=== PATIENT | male | born 1940 | race Caucasian/White ===

== ENCOUNTER → 2019-12-25 | Day surgery (SDC) | payer MEDICARE ==
[2019-12-20 12:57] LABS: BASOPHILS % 0.2 % (0.0-1.0); EOSINOPHILS # (AUTO) 0.3 (0.0-0.4); EOSINOPHILS % 5.4 % (0.0-6.0); HEMATOCRIT 33.4 % (38.2-49.6); HEMOGLOBIN 10.7 g/dL (14.0-18.0); LYMPHOCYTES # (AUTO) 1.6 (1.0-3.2); LYMPHOCYTES % 28.8 % (18.0-39.1); MEAN CORPUSCULAR HEMOGLOBIN 32.5 pg (28-32); MEAN CORPUSCULAR VOLUME 101.5 fL (81-99); MONOCYTES # (AUTO) 0.4 (0.2-0.8); NEUTROPHILS # (AUTO) 3.1 (2.1-6.9); NEUTROPHILS % 56.7 % (38.7-80.0); PLATELET COUNT 225 x10e3/uL (140-360); RED BLOOD COUNT 3.29 x10e6/uL (4.3-5.7); RED CELL DISTRIBUTION WIDTH 15.9 % (11.7-14.4)
[2019-12-20 13:21] LABS: ANION GAP 14.6 mmol/L (8-16); BLOOD UREA NITROGEN 12 mg/dL (7-26); BUN/CREATININE RATIO 14 (6-25); CALCIUM 9.4 mg/dL (8.4-10.2); CARBON DIOXIDE 25 mmol/L (22-29); CHLORIDE 107 mmol/L (98-107); CREATININE, SERUM 0.83 mg/dL (0.72-1.25); EST GLOMERULAR FILTRATION RATE > 60 ML/MIN (60-); GLUCOSE 152 mg/dL (74-118); POTASSIUM 4.6 mmol/L (3.5-5.1); SODIUM 142 mmol/L (136-145)
--- NOTE | 2019-12-20 13:34 | Diagnostic Imaging Report ---
EXAMINATION: CHEST 2 VIEWS INDICATION: Preop for surgery ^20191220 ^1311 ^PRE-OP COMPARISON: None FINDINGS: TUBES and LINES: None. LUNGS: Lungs are well inflated. Lungs are clear. There is no evidence of pneumonia or pulmonary edema. PLEURA: No pleural effusion or pneumothorax. HEART AND MEDIASTINUM: Likely small calcified mediastinal and hilar lymph nodes. The cardiomediastinal silhouette is otherwise unremarkable. BONES AND SOFT TISSUES: No acute osseous lesion. Soft tissues are unremarkable. UPPER ABDOMEN: No free air under the diaphragm. IMPRESSION: No acute thoracic abnormality. Signed by: Dr. Gerald Jones M.D. on 12/20/2019 1:31 PM
[~2019-12-25] MED LIST: ASPRIN PO; ATORVASTATIN CA80 MG PO; CEFAZOLIN SOD 1 GM/NS 50ML 100 ML IV ONE; DEXAMETHASONE SOD PHOS INJ 4 MG/ML VIAL ONE; EPHEDRINE SULFATE INJ 50 MG/ML VIAL ONE; FENTANYL CITRATE/PF 100MCG/2 ML INJ ONE; HYDROCODONE; LEVOTHYROXINE25 MCG PO; LIDOCAINE HCL 2% LOCAL INJ 5 ML SDV VIAL INJ ONE; LISINOPRIL10 MG PO; METFORMIN HCL1000 MG PO; MIDAZOLAM HCL 2 MG/2 ML VIAL ONE; MORPHINE SULFATE INJ 10 MG/ML ONE; NIACIN500 M2 PO; ONDANSETRON HCL INJ 2MG/ML 2ML 2 MG/ML VIAL ONE; PROPOFOL IV EMULSION 10 MG/ML 20 ML VIAL ONE; PROPRANOLOL HCL40 MG PO; PROZAC20 MG PO; SEVOFLURANE INHAL SOLN 250 ML PEN BTL ONE
[2019-12-25 17:35] VITALS: BP 160/82
--- NOTE | 2019-12-30 22:40 | Operative Report ---
DATE OF PROCEDURE: 12/25/2019 SURGEON: Jalen Islas MD PREOPERATIVE DIAGNOSIS: Displaced left patella fracture. POSTOPERATIVE DIAGNOSIS: Displaced left patella fracture. PROCEDURES PERFORMED: 1. Open reduction and internal fixation with a tension band technique of the displaced left patella fracture. 2. Allograft bone grafting of the left patella fracture. PRESTO LOG OPERATOR: There was no social and human services assistant. ANESTHESIA: General endotracheal intubation anesthesia. IV FLUIDS: Per the Anesthesia record. COMPLICATIONS: None. INDICATIONS FOR THE PROCEDURE: Mr. Martinez is a 79-year-old gentleman, who experienced a fall, fracturing his left patella. He was evaluated in the office and found to have a displaced patella fracture. At the time of his office visit, treatment options were discussed in detail, the patient chose to undergo surgical stabilization of his injury. At the time of his office visit, the preoperative and postoperative expectations were discussed in detail, which included the use of a knee immobilizer centered over the knee joint 24 hours a day. At the time of the patient's presentation to the hospital, the patient's knee immobilizer was found to be down around the patient's ankle. When asked about the position of his brace, the patient seemed to indicate he did not understand that it required, that it be centered over the knee joint. The postoperative expectations were again reviewed with the patient preoperatively. Specific instructions were provided in the postoperative orders concerning the use of the brace postoperatively and the nurses were also given specific instructions to pass along with the patient and family once the patient awakened in the postanesthesia care unit, concerning the positioning of the brace and the need for to be centered over the knee joint at all times. BRIEF DESCRIPTION OF THE PATIENT'S OPERATIVE PROCEDURE: Mr. Martinez was taken to the operating room and placed in supine position on the operating table. Following induction of general anesthesia as well as endotracheal intubation, the patient's left lower extremity was examined under anesthesia. He was found to have bruising and swelling over the anterior aspect of the knee joint. Fluoroscopic evaluation of the knee joint demonstrated a significantly displaced patella fracture. The patient's lower extremity was prepped and draped in standard surgical fashion. The case was begun by creating incision over the anterior aspect of the knee joint. This incision was carried through the skin only. Blunt dissection was used to deepen the incision and full-thickness skin flaps were elevated medially and laterally exposing the extensor mechanism and the patient's patella fracture. The patient's fracture was found to be significantly displaced, and there was significant disruption of the medial and lateral retinaculum. The patient's wound was copiously irrigated and all hematoma products were excised. The fracture site was also thoroughly assessed at this time. A tenaculum clamp was used to reduce the patient's fracture and the position of the fracture was assessed using fluoroscopy and found to be appropriate. Two 0.062 K-wires were then inserted from distal to proximal transfixing the fracture in its reduced position. The position of K-wires were again assessed fluoroscopically and found to be appropriate. An 18-gauge wire was then placed about the wires and patella in a [id number] fashion. The wires were then tensioned appropriately. The K-wires were cut and the construct was then assessed fluoroscopically and found to be appropriate. The knee was placed through range of motion and the construct was found to be intact with compression of the level of the fracture site. The wound was again copiously irrigated. He was found to have mild comminution of the fracture site. Graft on putty was used and injected in the area of comminution to stimulate bone growth. The extensor retinaculum was repaired using nonabsorbable suture. The remaining soft tissues were repaired in a multilayer fashion. Sterile dressings were applied and a knee immobilizer was placed in a position centered over the patella. The patient was then awakened and taken to the Postanesthesia Care Unit in stable condition. MD MAC Aggarwal/KRYSTINA /[id number]
== END | disposition home or self-care (01) ==
LOC: OR 14:14
PROVIDERS: ATTEND Specialist
DX: S82.042A Displaced comminuted fracture of left patella, initial encounter for closed fracture (principal); E11.9 Type 2 diabetes mellitus without complications; I10 Essential (primary) hypertension; R00.1 Bradycardia, unspecified; W18.39XA Other fall on same level, initial encounter; Z01.810 Encounter for preprocedural cardiovascular examination; Z01.812 Encounter for preprocedural laboratory examination; Z01.818 Encounter for other preprocedural examination; Z11.59 Encounter for screening for other viral diseases; Z79.82 Long term (current) use of aspirin; Z79.84 Long term (current) use of oral hypoglycemic drugs
CPT/HCPCS: 27524; 36415 ×2; 71046; 76000; 80048; 82948; 85025; 93005; C1713 ×2; J0690; J1100; J2001; J2250; J2270; J2405; J2704; J3010; U0002

== ENCOUNTER → 2020-01-14 | Day surgery (SDC) | payer MEDICARE, OTHER ==
[2020-01-10 10:57] LABS: BASOPHILS % 0.5 % (0.0-1.0); EOSINOPHILS # (AUTO) 0.3 (0.0-0.4); EOSINOPHILS % 4.1 % (0.0-6.0); HEMATOCRIT 39.5 % (38.2-49.6); LYMPHOCYTES # (AUTO) 2.8 (1.0-3.2); LYMPHOCYTES % 42.2 % (18.0-39.1); MEAN CORPUSCULAR HGB CONC 32.9 g/dL (31-35); MEAN CORPUSCULAR VOLUME 100.3 fL (81-99); MONOCYTES # (AUTO) 0.6 (0.2-0.8); MONOCYTES % 9.3 % (4.4-11.3); NEUTROPHILS # (AUTO) 2.9 (2.1-6.9); PLATELET COUNT 283 x10e3/uL (140-360); RED BLOOD COUNT 3.94 x10e6/uL (4.3-5.7); RED CELL DISTRIBUTION WIDTH 13.8 % (11.7-14.4)
[2020-01-10 11:26] LABS: BLOOD UREA NITROGEN 11 mg/dL (7-26); BUN/CREATININE RATIO 13 (6-25); CALCIUM 9.4 mg/dL (8.4-10.2); CARBON DIOXIDE 27 mmol/L (22-29); CHLORIDE 107 mmol/L (98-107); CREATININE, SERUM 0.88 mg/dL (0.72-1.25); EST GLOMERULAR FILTRATION RATE > 60 ML/MIN (60-); GLUCOSE 147 mg/dL (74-118); SODIUM 143 mmol/L (136-145)
[~2020-01-14] MED LIST changes: +DESFLURANE 240 ML BTL INH ONE; -MIDAZOLAM HCL 2 MG/2 ML VIAL ONE; -MORPHINE SULFATE INJ 10 MG/ML ONE; -SEVOFLURANE INHAL SOLN 250 ML PEN BTL ONE
[2020-01-14 11:02] LABS: ANION GAP 14.4 mmol/L (8-16); BLOOD UREA NITROGEN 17 mg/dL (7-26); BUN/CREATININE RATIO 20 (6-25); CALCIUM 9.4 mg/dL (8.4-10.2); CARBON DIOXIDE 23 mmol/L (22-29); CHLORIDE 107 mmol/L (98-107); CREATININE, SERUM 0.83 mg/dL (0.72-1.25); EST GLOMERULAR FILTRATION RATE > 60 ML/MIN (60-); GLUCOSE 165 mg/dL (74-118); POTASSIUM 4.4 mmol/L (3.5-5.1); SODIUM 140 mmol/L (136-145)
--- NOTE | 2020-01-14 15:52 | Diagnostic Imaging Report ---
TECHNIQUE: Intraoperative image(s) IMPRESSION: Indicative equipment was utilized for a procedure performed in the operating room. No interpretation was requested. Please refer to the operative note and PACS for more details regarding the procedure and findings. Signed by: Te Villalobos MD on 01/14/2020 3:49 PM
[2020-01-14 17:05] VITALS: BP 133/74
--- NOTE | 2020-01-20 20:22 | Operative Report ---
DATE OF PROCEDURE: 01/14/2020 SURGEON: Jalen Islas MD PREOPERATIVE DIAGNOSIS: Failed fixation of the left patella fracture. POSTOPERATIVE DIAGNOSIS: Failed fixation of the left patella fracture. OPERATIONS AND PROCEDURES PERFORMED: 1. The patient underwent a removal of the failed hardware of the left patella fracture. 2. Open reduction and internal fixation of the left patellar fracture. 3. Tension band stabilization of the left patellar fracture. 4. Cerclage wire fixation of the left patella fracture. 5. Application of long-leg splint. TRANSPORTATION AIDE: There was no psychology assistant. ANESTHESIA: General endotracheal intubation anesthesia. IV FLUIDS: Per anesthesia record. BRIEF DISCUSSION OF THE PATIENT'S OPERATIVE PROCEDURE: Mr. Martinez is a 79-year-old male, who recently underwent an open reduction and internal fixation of a left patella fracture. Preoperatively as well as postoperatively, the patient was instructed to decrease his activity levels and to wear a knee immobilizer at all times following his surgery. The patient unfortunately was noncompliant with the postsurgical instructions as was confirmed by his family. At his 1st postoperative appointment, the patient was found to have failed hardware about the left patella fracture. The patient and family selected to have a revision of his fracture fixation. The patient's lower extremity was prepped and draped in standard surgical fashion. The patient's previous incision was used as the approach for this 2nd procedure. His surgical incision was opened and full-thickness skin flaps were elevated medially and laterally. The extensor mechanism was identified and his failed hardware was easily identified in the soft tissues. The hardware was removed without difficulty. A tenaculum clamp was used to provide fracture stabilization. A 2.062 K-wires were inserted from distal to proximal, transfixing the patella fracture in its reduced position. An 18-gauge wire was then placed about the patella in a [id number]-[id number] fashion and the wires were tensioned appropriately. Intraoperative x-rays confirmed the position of the [id number] tension band technique for the patient's patellar fracture. A 2nd 18-gauge wire was then woven circumferentially about the patella and this wire was also tensioned to provide secondary stabilization of his fracture. Intraoperative x-rays again reconfirmed fracture stabilization. The knee was placed through motion and the fracture construct remained intact. The wound was copiously irrigated. The soft tissues were closed in a multilayer fashion. Sterile dressings were applied as well as a long-leg splint with stirrups about the knee joint to prevent motion of the knee. The patient was then awakened and taken to the postanesthesia care unit in stable condition. MD MAC Aggarwal/KRYSTINA /[id number]
== END | disposition home or self-care (01) ==
LOC: OR 09:51
PROVIDERS: ATTEND Specialist
DX: T84.117A Breakdown (mechanical) of internal fixation device of bone of left lower leg, initial encounter (principal); S82.042A Displaced comminuted fracture of left patella, initial encounter for closed fracture; E11.9 Type 2 diabetes mellitus without complications; Z91.19 Patient's noncompliance with other medical treatment and regimen; H91.91 Unspecified hearing loss, right ear; Y83.8 Other surgical procedures as the cause of abnormal reaction of the patient, or of later complication, without mention of misadventure at the time of the procedure; Z01.810 Encounter for preprocedural cardiovascular examination; Z01.812 Encounter for preprocedural laboratory examination; Z11.59 Encounter for screening for other viral diseases; Z79.82 Long term (current) use of aspirin; Z79.84 Long term (current) use of oral hypoglycemic drugs
CPT/HCPCS: 27524; 36415 ×2; 76000; 80048 ×2; 82948; 85025; 93005; C1713; J0690; J1100; J2001; J2405; J2704; J3010; U0002

== ENCOUNTER 2020-04-08 08:38 | Observation (INO) | payer MEDICARE, OTHER ==
[2020-04-03 11:37] LABS: BASOPHILS % 0.3 % (0.0-1.0); EOSINOPHILS # (AUTO) 0.3 (0.0-0.4); EOSINOPHILS % 3.8 % (0.0-6.0); HEMATOCRIT 38.9 % (38.2-49.6); HEMOGLOBIN 12.3 g/dL (14.0-18.0); LYMPHOCYTES # (AUTO) 1.7 (1.0-3.2); LYMPHOCYTES % 24.2 % (18.0-39.1); MEAN CORPUSCULAR HEMOGLOBIN 29.3 pg (28-32); MEAN CORPUSCULAR HGB CONC 31.6 g/dL (31-35); MEAN CORPUSCULAR VOLUME 92.6 fL (81-99); MONOCYTES # (AUTO) 0.6 (0.2-0.8); MONOCYTES % 8.6 % (4.4-11.3); NEUTROPHILS # (AUTO) 4.4 (2.1-6.9); NEUTROPHILS % 62.3 % (38.7-80.0); PLATELET COUNT 254 x10e3/uL (140-360); RED CELL DISTRIBUTION WIDTH 15.3 % (11.7-14.4)
[2020-04-03 12:00] LABS: BLOOD UREA NITROGEN 7 mg/dL (7-26); BUN/CREATININE RATIO 10 (6-25); CALCIUM 9.4 mg/dL (8.4-10.2); CARBON DIOXIDE 26 mmol/L (22-29); CHLORIDE 106 mmol/L (98-107); CREATININE, SERUM 0.73 mg/dL (0.72-1.25); EST GLOMERULAR FILTRATION RATE > 60 ML/MIN (60-); GLUCOSE 131 mg/dL (74-118); SODIUM 142 mmol/L (136-145)
[~2020-04-08] VITALS: Ht 180.3 cm; Wt 80.7 kg
[~2020-04-08 08:38] MED LIST changes: -CEFAZOLIN SOD 1 GM/NS 50ML 100 ML IV ONE; -DESFLURANE 240 ML BTL INH ONE; -DEXAMETHASONE SOD PHOS INJ 4 MG/ML VIAL ONE; -EPHEDRINE SULFATE INJ 50 MG/ML VIAL ONE; -FENTANYL CITRATE/PF 100MCG/2 ML INJ ONE; +FLOMAX0.4 MG PO; -LIDOCAINE HCL 2% LOCAL INJ 5 ML SDV VIAL INJ ONE; -ONDANSETRON HCL INJ 2MG/ML 2ML 2 MG/ML VIAL ONE; -PROPOFOL IV EMULSION 10 MG/ML 20 ML VIAL ONE
[2020-04-08] MEDS ORDERED: CEFAZOLIN SOD 1 GM/NS 50ML 100 ML IV ONE (09:01)
[2020-04-08] MEDS ORDERED: BUPIVACAINE HCL 0.5% INJ 30 ML VIAL INJ ONE (11:35)
[2020-04-08] MEDS ORDERED: ONDANSETRON HCL INJ 2MG/ML 2ML 2 MG/ML VIAL IV PRN (13:15)
[2020-04-08] MEDS: SODIUM CHLORIDE 0.9% 1000ML 1,000 ML IV SCH ×2 (13:15→20:37)
[2020-04-08] MEDS ORDERED: FENTANYL CITRATE/PF 100MCG/2 ML INJ ONE ×2 (13:27→13:58)
[2020-04-08] MEDS ORDERED: ONDANSETRON HCL INJ 2MG/ML 2ML 2 MG/ML VIAL ONE (13:47)
[2020-04-08] MEDS ORDERED: SEVOFLURANE INHAL SOLN 250 ML PEN BTL ONE (13:47)
[2020-04-08] MEDS ORDERED: LIDOCAINE HCL 2% LOCAL INJ 5 ML SDV VIAL INJ ONE (13:47)
[2020-04-08] MEDS ORDERED: PROPOFOL IV EMULSION 10 MG/ML 20 ML VIAL ONE (13:47)
[2020-04-08] MEDS ORDERED: LIDOCAINE HCL 2% JELLY 5 ML TUBE ONE (13:47)
[2020-04-08 14:30] VITALS: BP 147/79
[2020-04-08] MEDS: HYDROCODONE/APAP 5MG-325MG TAB PO PRN ×2 (14:50→19:10)
[2020-04-08 20:00] VITALS: BP 123/70
[2020-04-08] MEDS: CEFAZOLIN SOD 1 GM/NS 50ML 50 ML IV SCH (20:37)
[2020-04-09] VITALS: BP 129/74
[2020-04-09 04:00] VITALS: BP 122/75
[2020-04-09] MEDS: CEFAZOLIN SOD 1 GM/NS 50ML 50 ML IV SCH ×2 (05:15→12:59)
[2020-04-09] MEDS: HYDROCODONE/APAP 5MG-325MG TAB PO PRN (05:15)
[2020-04-09 05:59] LABS: HEMATOCRIT 33.2 % (38.2-49.6); HEMOGLOBIN 10.6 g/dL (14.0-18.0)
[2020-04-09 07:40] VITALS: BP 131/72
[2020-04-09 08:00] VITALS: BP 131/72
[2020-04-09] MEDS: SODIUM CHLORIDE 0.9% 1000ML 1,000 ML IV SCH (09:15)
[2020-04-09 11:01] VITALS: BP 126/77
[2020-04-09 13:51] VITALS: BP 126/77
[2020-04-09] MEDS ORDERED: ONDANSETRON HCL 4 MG ORAL DISINTEGRATING TAB PO PRN (14:00)
[2020-04-09] MEDS ORDERED: RIVAROXABAN 10 MG TABLET PO SCH (17:00)
== END 2020-04-09 14:19 | disposition home or self-care (01) ==
LOC: OR 08:38 → PACU V 13:04 → MED/SURG 14:29
PROVIDERS: ADMIT Specialist; ATTEND Specialist
DX: T84.629A Infection and inflammatory reaction due to internal fixation device of unspecified bone of leg, initial encounter (principal); E03.9 Hypothyroidism, unspecified; E11.9 Type 2 diabetes mellitus without complications; I10 Essential (primary) hypertension; R00.1 Bradycardia, unspecified; Y83.8 Other surgical procedures as the cause of abnormal reaction of the patient, or of later complication, without mention of misadventure at the time of the procedure; Z20.822 Contact with and (suspected) exposure to COVID-19; Z01.818 Encounter for other preprocedural examination; Z79.84 Long term (current) use of oral hypoglycemic drugs; Z79.82 Long term (current) use of aspirin
CPT/HCPCS: 20680; 27570; 36415 ×3; 73560; 76000; 80048; 82948; 85014; 85018; 85025; 97116 ×2; 97162; G0378 ×2; J0690 ×2; J2001 ×2; J2405; J2704; J3010; J7030 ×2; U0002